=== PATIENT | female | born 1980 | race Two or more races ===

== ENCOUNTER → 2021-02-03 | Outpatient (CLI) | payer SELFPAY ==
[2016-11-07 12:08] VITALS: BP 109/62
[~2021-02-03] MED LIST: DOCU-109 PO; DOXY100C14 PO; FERR325T14 PO; HYDR-3164 PO; IBUP-1060 PO; METH0.2T36 PO; NAPR-514 PO
== END ==
LOC: LAB 12:03
PROVIDERS: ATTEND Obstetrics & Gynecology
DX: Z01.812 Encounter for preprocedural laboratory examination (principal); Z20.822 Contact with and (suspected) exposure to COVID-19
CPT/HCPCS: U0003

== ENCOUNTER 2021-02-06 05:57 | Inpatient (IN) | payer SELFPAY ==
[2021-02-06] VITALS (16 sets, daily range): BP systolic 114–139; BP diastolic 53–73
[~2021-02-06] VITALS: Ht 139.7 cm; Wt 70.8 kg
[~2021-02-06 05:57] MED LIST changes: -DOCU-109 PO; -FERR325T14 PO; -IBUP-1060 PO
[2021-02-06] MEDS ORDERED: CITRIC ACID/SODIUM CITRATE 30 ML SOLUTION. PO PRN (06:15)
[2021-02-06] MEDS ORDERED: BUTORPHANOL 2 MG/ML VIAL. IVP PRN ×2 (06:15)
[2021-02-06] MEDS ORDERED: TERBUTALINE 1 MG/ML VIAL. SQ PRN (06:15)
[2021-02-06] MEDS ORDERED: LIDOCAINE 1% PF 30 ML VIAL. INJ PRN (06:15)
[2021-02-06] MEDS ORDERED: IBUPROFEN 400 MG TABLET. PO PRN (06:15)
[2021-02-06] MEDS ORDERED: ONDANSETRON PF 4 MG/2 ML VIAL. IVP PRN (06:15)
[2021-02-06] MEDS ORDERED: OXYTOCIN 30 UNIT/500 ML PREMIX 500 ML IV PRN ×2 (06:15→14:45)
[2021-02-06] MEDS ORDERED: ACETAMINOPHEN 325 MG TABLET. PO PRN ×2 (06:15→14:45)
[2021-02-06] MEDS ORDERED: 0.9 % SODIUM CHLORIDE 10 ML DISP.SYRIN. IV PRN ×2 (06:15→14:45)
[2021-02-06] MEDS: IV RINGERS,LACTATED 1000ML 1,000 ML IV SCH ×3 (06:42→11:26)
[2021-02-06 06:53] LABS: BILIRUBIN,URINE NEGATIVE (NEG); CLARITY,URINE CLEAR; COLOR,URINE YELLOW; NITRITE,URINE NEGATIVE (NEG); PROTEIN,URINE NEGATIVE (NEG-TRACE); UROBILINOGEN,URINE 0.2 mg/dL (0.2 mg/dL)
[2021-02-06 07:01] LABS: BASO % 1 % (0-3); EOS % 1 % (0-3); HEMATOCRIT 36.4 % (36.0-47.0); HEMOGLOBIN 12.4 g/dL (12.0-15.5); LYMPH # 1.7 x10^3/uL (1.0-4.8); LYMPH % 26 % (24-48); MEAN CORPUSCULAR HEMOGLOBIN 31 pg (25-35); MEAN CORPUSCULAR HGB CONC 34 g/dL (31-37); MEAN CORPUSCULAR VOLUME 91 fL (79-100); MONO # 0.4 x10^3/uL (0.0-1.1); MONO % 6 % (0-9); NEUT # 4.2 x10^3/uL (1.8-7.7); NEUT % 66 % (31-73); PLATELET COUNT 131 x10^3/uL (140-400); RED BLOOD COUNT 3.99 x10^6/uL (3.50-5.40); RED CELL DISTRIBUTION WIDTH 13.8 % (11.5-14.5); WHITE BLOOD COUNT 6.3 x10^3/uL (4.0-11.0)
[2021-02-06 07:12] LABS: BACTERIA,URINE 0 /HPF (0-FEW); RBC,URINE 0 /HPF (0-2); WBC,URINE 0 /HPF (0-4)
[2021-02-06] MEDS: OXYTOCIN 30 UNIT/500 ML PREMIX 500 ML IV PRN ×3 (07:43→19:38)
--- NOTE | 2021-02-06 07:56 | PDOC1 ---
[employer] H&P Date of Admission: Date of Admission: Feb 06, 2021 at 05:57 History of Present Illness: EDC: 02/13/21 LMP: 05/09/20 40y @ 39.0 by L=22 presents for scheduled indxn. The pt had to be started on Metformin 500 qhs for GDM. Since starting the med she has had good control. The pts has been otherwise uncomplicated. PMH: Hypothyroidism PSH: D&C Meds: PNV, ASA, Metformin All: NKDA OBHx: TSVD x 4 SH: no tob, no EtOH FH: noncontributory Medications: Meds: Current Medications Medications (Trade) Dose Ordered Sig/Selena Route PRN Reason Start Time Stop Time Status Last Admin Dose Admin Ringer's Solution 1,000 ml @ 125 mls/hr Q8H IV 02/06/21 06:15 02/06/21 07:43 Oxytocin 500 ml @ 0 mls/hr CONT PRN IV SEE I/O RECORD 02/06/21 06:15 02/06/21 07:43 Allergies: Coded Allergies: No Known Drug Allergies (Unverified , 11/07/16) Physical Exam: PE: GENERAL: No apparent distress. Alert and oriented. HEENT: Head normocephalic, atraumatic. NECK: Supple LUNGS: Clear to auscultation. HEART: RRR, S1, S2 present, pulses intact ABDOMEN: Soft, positive bowel sounds. EXTREMITIES: No cyanosis or edema. NEUROLOGIC: Normal speech, normal tone PSYCHIATRIC: Normal affect, normal mood. SKIN: No ulceration. FHT: 130s +acels/no decels/mLTV [place]: 8-10 min SVE: 3/80/-3 Labs: Laboratory Tests Test 02/06/21 06:15 02/06/21 06:30 02/06/21 07:51 Urine Collection Type Unknown Urine Color Yellow Urine Clarity Clear Urine pH 7.0 (<5.0-8.0) Urine Specific [place] <=1.005 (1.000-1.030) Urine Protein Negative mg/dL (NEG-TRACE) Urine Glucose (UA) Negative mg/dL (NEG) Urine Ketones (Stick) Negative mg/dL (NEG) Urine Blood Negative (NEG) Urine Nitrite Negative (NEG) Urine Bilirubin Negative (NEG) Urine Urobilinogen Dipstick 0.2 mg/dL (0.2 mg/dL) Urine Leukocyte Esterase Negative (NEG) Urine RBC 0 /HPF (0-2) Urine WBC 0 /HPF (0-4) Urine Squamous Epithelial Cells Mod /LPF Urine Bacteria 0 /HPF (0-FEW) White Blood Count 6.3 x10^3/uL (4.0-11.0) Red Blood Count 3.99 x10^6/uL (3.50-5.40) Hemoglobin 12.4 g/dL (12.0-15.5) Hematocrit 36.4 % (36.0-47.0) Mean Corpuscular Volume 91 fL (79-100) Mean Corpuscular Hemoglobin 31 pg (25-35) Mean Corpuscular Hemoglobin Concent 34 g/dL (31-37) Red Cell Distribution Width 13.8 % (11.5-14.5) Platelet Count 131 x10^3/uL (140-400) L Neutrophils (%) (Auto) 66 % (31-73) Lymphocytes (%) (Auto) 26 % (24-48) Monocytes (%) (Auto) 6 % (0-9) Eosinophils (%) (Auto) 1 % (0-3) Basophils (%) (Auto) 1 % (0-3) Neutrophils # (Auto) 4.2 x10^3/uL (1.8-7.7) Lymphocytes # (Auto) 1.7 x10^3/uL (1.0-4.8) Monocytes # (Auto) 0.4 x10^3/uL (0.0-1.1) Eosinophils # (Auto) 0.0 x10^3/uL (0.0-0.7) Basophils # (Auto) 0.0 x10^3/uL (0.0-0.2) Platelet Estimate Pending Glucose (Fingerstick) 81 mg/dL (70-99) Laboratory Tests 02/06/21 06:30 Laboratory Tests 02/06/21 06:30 Assessment & Plan: A/P 40y @ 39.0 by L=22 1.) Indxn on Pit 2.) AMA - quad screen neg 3.) A2DM - on Metformin 500 qhs, good control 4.) Covid 08/25/20 5.) TDAP given 12/16/20 6.) 11 day difference b/t LMP and u/s 7.) Macrosomia 8.) Hypothyroidism no meds 9.) Elevated BP all mild, no s/s of preclampsia 10.) Fetus cat I FHT 11.) GBS neg LATASHA SANCHEZ MD Feb 06, 2021 07:56
[2021-02-06] MEDS ORDERED: hydrALAZINE 20 MG/ML VIAL. ONE (08:23)
[2021-02-06] MEDS ORDERED: hydrALAZINE 20 MG/ML VIAL. IVP PRN ×2 (08:30→08:45)
[2021-02-06 10:18] LABS: PLT ESTIMATE DECREASED (ADEQUATE)
[2021-02-06] MEDS ORDERED: ROPIVacaine 0.2% PF 10 ML VIAL. ONE ×3 (11:52→12:33)
[2021-02-06] MEDS ORDERED: L&D EPIDURAL SYRINGE 50 ML ONE (11:52)
[2021-02-06] MEDS ORDERED: L&D EPIDURAL 50 ML SYRINGE. ONE (12:00)
[2021-02-06] MEDS ORDERED: ePHEDrine PF IN SALINE 50 MG/10 ML SYRINGE. IV PRN (13:00)
[2021-02-06] MEDS ORDERED: NALOXONE 0.4 MG/ML VIAL. IV PRN (13:00)
[2021-02-06] MEDS ORDERED: IV RINGERS,LACTATED 1000ML 1,000 ML IV SCH (13:00)
[2021-02-06] MEDS ORDERED: ROPIVacaine 0.2% PF 10 ML VIAL. EPID PRN (13:00)
[2021-02-06] MEDS ORDERED: ZOLPIDEM 5 MG TABLET. PO PRN (14:45)
[2021-02-06] MEDS ORDERED: oxyCODONE/APAP 5/325 1 TAB TABLET PO PRN (14:45)
[2021-02-06] MEDS ORDERED: MAG HYDROX/ALUMINUM HYD/SIMETH 30 ML ORAL.SUSP PO PRN (14:45)
[2021-02-06] MEDS ORDERED: MMR per PROTOCOL. MC PRN (14:45)
[2021-02-06] MEDS ORDERED: diphenhydrAMINE HCL 25 MG CAPSULE PO PRN (14:45)
[2021-02-06] MEDS ORDERED: SIMETHICONE 80 MG TAB.CHEW PO PRN (14:45)
[2021-02-06] MEDS ORDERED: PHENYLEPH/MINERAL OIL/PETROLAT RECTAL OINTMENT TUBE. RC PRN (14:45)
[2021-02-06] MEDS ORDERED: TDaP (Adacel) per PROTOCOL. MC PRN (14:45)
[2021-02-06] MEDS ORDERED: HYDROCORTISONE 1% TOPICAL OINTMENT 30GM TUBE. TP PRN (14:45)
[2021-02-06] MEDS ORDERED: BENZOCAINE 20% TOPICAL AEROSOL SPRAY 57GM CAN. TP PRN (14:45)
[2021-02-06] MEDS ORDERED: MAGNESIUM HYDROXIDE 2,400 MG/30 ML ORAL.SUSP. PO PRN (14:45)
--- NOTE | 2021-02-06 15:30 | PDOC ---
VAGINAL DELIVERY DATE DATE: 02/06/21 TIME: 15:30 TIME Patient delivered a viable male over intact perineum at 1329. Wt 8 lb 13 oz. Apgars 8/9. Placenta delivered spontaneously, intact with 3VC. No lacerations noted. Good hemostasis noted. 20 U of Pit given with IVF. EBL 300cc. WEIGHT Weight [ ] LATASHA SANCHEZ MD Feb 06, 2021 15:30
[2021-02-06] MEDS: IBUPROFEN 400 MG TABLET. PO PRN (16:25)
--- NOTE | 2021-02-06 17:00 | NUR ---
Pt. calls desk around 1700 and does not speak director of extension work light, RN goes to room and finds father in bathroom cleaning up blood and pt. laying on side of the bed and breathing heavily. Pt. states she got to the bathroom and started bleeding heavily. RN pushes on fundus and finds it boggy with a gush of blood, calls for help over headset. 2 nurses assist RN at this time, straight cath and 100 cc produced and fundal rub produces large clots. Pit bag hung. Pt. bleeding decreases, RN notifies MD. Orders for 800 cytotec. Given ME by RN. PT. bleeding decreases. QBL 910, EBL 150, FOB states there was more blood in the toilet but RN unable to assess because he flushed it. VSS. RN continues to monitor
[2021-02-06] MEDS ORDERED: miSOPROStol 200 MCG TABLET. ONE (17:24)
[2021-02-06] MEDS ORDERED: miSOPROStol 200 MCG TABLET. PR ONE (18:00)
--- NOTE | 2021-02-06 18:03 | NUR ---
RN pushes on fundus another gush of 35cc at this time
--- NOTE | 2021-02-06 18:19 | NUR ---
RN pushes on fundus 15cc of blood expelled
--- NOTE | 2021-02-06 18:43 | NUR ---
15cc of blood expressed with fundal rub at this time
[2021-02-07 00:09] VITALS: BP 125/50
[2021-02-07 00:24] VITALS: BP 114/48
[2021-02-07] MEDS: IBUPROFEN 400 MG TABLET. PO PRN ×3 (00:49→23:01)
[2021-02-07] MEDS: DOCUSATE SODIUM 100 MG CAPSULE. PO PRN ×3 (00:50→18:50)
[2021-02-07 04:23] LABS: HEMATOCRIT 25.5 % (36.0-47.0); HEMOGLOBIN 8.8 g/dL (12.0-15.5); RED BLOOD COUNT 2.75 x10^6/uL (3.50-5.40); WHITE BLOOD COUNT 7.8 x10^3/uL (4.0-11.0)
[2021-02-07 08:00] VITALS: BP 120/68
[2021-02-07] MEDS: PRENATAL MULTIVITAMIN TABLET. PO SCH (08:01)
[2021-02-07] MEDS: FERROUS SULFATE 325 MG TABLET. PO SCH ×2 (08:01→18:50)
--- NOTE | 2021-02-07 08:54 | PDOC ---
WOOD GETTER PROGRESS NOTE Date of Service: DATE: 02/07/21 TIME: 08:54 Subjective: Pt with heavy bleeding episode around 5 pm. Her bleeding has been better since the event. She was given cytotec as well. Pt with good pain control. Evangelista PO. Voiding. Minimal lochia since. Objective: Vital Signs: Vital Signs Date Time Temp Pulse Resp B/P (MAP) Pulse Ox O2 Delivery O2 Flow Rate FiO2 02/06/21 08:35 170/86 02/06/21 16:40 75 22 98 02/06/21 18:07 98.7 98.7 02/07/21 08:00 Room Air Vital Signs Date Time Temp Pulse Resp B/P (MAP) Pulse Ox O2 Delivery O2 Flow Rate FiO2 02/07/21 08:00 98.4 70 18 120/68 (85) 98 Room Air 98.4 Labs: Laboratory Tests Test 02/06/21 12:21 02/07/21 03:26 Glucose (Fingerstick) 79 mg/dL (70-99) White Blood Count 7.8 x10^3/uL (4.0-11.0) Red Blood Count 2.75 x10^6/uL (3.50-5.40) L Hemoglobin 8.8 g/dL (12.0-15.5) L Hematocrit 25.5 % (36.0-47.0) L Mean Corpuscular Volume 93 fL (79-100) Mean Corpuscular Hemoglobin 32 pg (25-35) Mean Corpuscular Hemoglobin Concent 35 g/dL (31-37) Red Cell Distribution Width 14.0 % (11.5-14.5) Platelet Count 99 x10^3/uL (140-400) L Laboratory Tests 02/07/21 03:26 Laboratory Tests 02/07/21 03:26 Physical Exam: GENERAL: No apparent distress. Alert and oriented. HEENT: Head normocephalic, atraumatic. NECK: Supple LUNGS: Clear to auscultation. HEART: RRR, S1, S2 present, pulses intact ABDOMEN: Soft, positive bowel sounds. EXTREMITIES: No cyanosis or edema. NEUROLOGIC: Normal speech, normal tone PSYCHIATRIC: Normal affect, normal mood. SKIN: No ulceration. FFNT below umb No C/C/E Assessment & Plan: A/P 40y PPD #1 s/p 1.) PP doing well 2.) PPH - ~900 cc about 4 hrs after delivery, s/p Cytotec, improved since 3.) A2DM will check fasting FSBS tomorrow 4.) Hgb 12.4 -> 8.8 5.) Covid 08/25/20 6.) TDAP given 11/16/20 7.) Hypothyroidism no meds 8.) GHTN required IV BP meds (Hydralazine 5 mg) x 2 during labor, BPs nml since delivery 9.) Cont PP care LATASHA SANCHEZ MD Feb 07, 2021 08:54
[2021-02-07 12:10] VITALS: BP 112/51
[2021-02-07 16:30] VITALS: BP 138/68
[2021-02-07 23:00] VITALS: BP 131/68
[2021-02-08 05:00] VITALS: BP 114/64
[2021-02-08] MEDS: FERROUS SULFATE 325 MG TABLET. PO SCH (08:06)
[2021-02-08] MEDS: DOCUSATE SODIUM 100 MG CAPSULE. PO PRN (08:07)
[2021-02-08] MEDS: PRENATAL MULTIVITAMIN TABLET. PO SCH (08:07)
[2021-02-08] MEDS: IBUPROFEN 400 MG TABLET. PO PRN (08:08)
[2021-02-08] MEDS ORDERED: FERR325T14 PO (08:48)
[2021-02-08] MEDS ORDERED: DOCU-109 PO (08:48)
[2021-02-08] MEDS ORDERED: IBUP-1060 PO (08:48)
--- NOTE | 2021-02-08 09:23 | PDOC ---
CLINICAL SPECIALIST VASCULAR PROGRESS NOTE Date of Service: DATE: 02/08/21 TIME: 09:22 Subjective: Pt with good pain control. Evangelista PO. Voiding. Minimal lochia. Objective: Vital Signs: Vital Signs Date Time Temp Pulse Resp B/P (MAP) Pulse Ox O2 Delivery O2 Flow Rate FiO2 02/07/21 08:00 98.4 70 18 120/68 (85) 98 Room Air 98.4 Vital Signs Date Time Temp Pulse Resp B/P (MAP) Pulse Ox O2 Delivery O2 Flow Rate FiO2 02/08/21 08:37 Room Air 02/08/21 05:00 98.0 65 18 114/64 (81) 98.0 02/07/21 23:00 99 Labs: Laboratory Tests Test 02/08/21 04:56 Glucose (Fingerstick) 85 mg/dL (70-99) Physical Exam: GENERAL: No apparent distress. Alert and oriented. HEENT: Head normocephalic, atraumatic. NECK: Supple LUNGS: Clear to auscultation. HEART: RRR, S1, S2 present, pulses intact ABDOMEN: Soft, positive bowel sounds. EXTREMITIES: No cyanosis or edema. NEUROLOGIC: Normal speech, normal tone PSYCHIATRIC: Normal affect, normal mood. SKIN: No ulceration. FFNT below umb No C/C/E Assessment & Plan: A/P 40y PPD #2 s/p 1.) PP doing well 2.) PPH - ~900 cc about 4 hrs after delivery, s/p Cytotec, improved since 3.) A2DM fasting FSBS nml 4.) Hgb 12.4 -> 8.8 5.) Covid 08/25/20 6.) TDAP given 11/16/20 7.) Hypothyroidism no meds 8.) GHTN required IV BP meds (Hydralazine 5 mg) x 2 during labor, BPs nml since delivery 9.) D/c home LATASHA SANCHEZ MD Feb 08, 2021 09:23
--- NOTE | 2021-02-08 09:47 | DS ---
DATE OF DISCHARGE: 02/08/2021 ADMISSION DIAGNOSES: 1. Intrauterine at 39 weeks and 0 days by LMP equal to 22-week ultrasound. 2. Scheduled induction. 3. Advanced maternal age. 4. A2 diabetes. 5. History of COVID in August. 6. Concerns of macrosomia. 7. Hypothyroidism. 8. Gestational hypertension. 9. Group B Streptococcus negative. DISCHARGE DIAGNOSES: 1. Intrauterine at 39 weeks and 0 days by LMP equal to 22-week ultrasound. 2. Scheduled induction. 3. Advanced maternal age. 4. A2 diabetes. 5. History of COVID in August. 6. Concerns of macrosomia. 7. Hypothyroidism. 8. Gestational hypertension. 9. Group B Streptococcus negative. PROCEDURE: Spontaneous vaginal delivery. BRIEF HOSPITAL COURSE: The patient is a 40-year-old 6, para 4-0-1-4, who presented to Labor and Delivery at 39 weeks and 0 days by LMP equal to 22-week ultrasound for scheduled induction. The patient had been started on metformin 500 mg at bedtime during the course of her for gestational diabetes. Since starting the medication, the patient had had good control of her blood sugars. The patient's had been otherwise uncomplicated. On presentation to Labor and Delivery, the patient was found to be 3 cm and started on Pitocin for her induction. During the course of her labor, the patient had few severe range blood pressures to avoid requiring treatment with hydralazine 5 mg IV; otherwise, the patient remained without signs or symptoms of preeclampsia. Early in the course of the patient's labor, she was artificially ruptured with clear fluid. The patient ultimately delivered by vaginal delivery early in the afternoon. See delivery note for full detail. Approximately 4 hours after delivery, the patient had a heavy bleeding episode where about 900 mL of blood was lost including clots. Her bleeding improved and she was given Cytotec. After that point, the patient had minimal lochia. The patient's blood pressures after delivery remained normal without any mild to severe range blood pressures. The patient's fasting blood sugar was checked on day #2 and found to be normal, so her metformin was discontinued after her delivery. By day #2, the patient was meeting all discharge criteria and was subsequently discharged home. Of note, the patient's hemoglobin prior to delivery was 12.4 and after delivery was found to be 8.8. DISCHARGE INSTRUCTIONS: The patient was told not to lift anything greater than 20 pounds, have pelvic rest for 6 weeks. CALL IF: The patient was to call if she had fevers, chills, nausea, vomiting, abdominal pain or any additional questions or concerns. FOLLOWUP APPOINTMENT: The patient is to follow up on 03/20 at 10:40 a.m. for a visit. DISCHARGE MEDICATIONS: The patient was given a prescription for Motrin 800 mg, 30 pills; Colace 100 mg, 30 pills and ferrous sulfate 325 mg, 30 pills. LATASHA SANCHEZ MD DR: ROBBI/ollie JOB#: [id number] / [id number]
[2021-02-08 12:30] VITALS: BP 139/73
--- NOTE | 2021-02-08 13:05 | NUR ---
Pt. dc'd to home with family. Written and verbal DC instructions given to pt., v/u. Pt. plans to follow-up with [facility] on 03/20/21.
== END 2021-02-08 13:05 | disposition home or self-care (01) | DRG 806 ==
LOC: 3 SO LND 05:57 → 3 NORTH 18:48
PROVIDERS: ADMIT Obstetrics & Gynecology; ATTEND Obstetrics & Gynecology
PROC: 10E0XZZ Delivery of Products of Conception, External Approach (ICD-10-PCS; principal; 2021-02-06)
PROC: 3E033VJ Introduction of Other Hormone into Peripheral Vein, Percutaneous Approach (ICD-10-PCS; 2021-02-06)
PROC: 10907ZC Drainage of Amniotic Fluid, Therapeutic from Products of Conception, Via Natural or Artificial Opening (ICD-10-PCS; 2021-02-06)
DX: O24.425 Gestational diabetes mellitus in childbirth, controlled by oral hypoglycemic drugs (principal); O72.1 Other immediate postpartum hemorrhage; Z37.0 Single live birth; O36.63X0 Maternal care for excessive fetal growth, third trimester, not applicable or unspecified; O99.284 Endocrine, nutritional and metabolic diseases complicating childbirth; E03.9 Hypothyroidism, unspecified; O13.4 Gestational [pregnancy-induced] hypertension without significant proteinuria, complicating childbirth; Z86.16 Personal history of COVID-19; Z3A.39 39 weeks gestation of pregnancy; Z79.84 Long term (current) use of oral hypoglycemic drugs
CPT/HCPCS: 36415; 81001; 82962; 85025; 85027; 86592; 86850; 86900; 86901; J0360; J2590; J2795; J3010; J7120; G0378